=== PATIENT | male | born 2000 | race African-American/Black ===

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

== ENCOUNTER 2020-07-18 16:44 | Emergency (ER) | payer OTHER, MEDICAID ==
[~2020-07-18] VITALS: Ht 193 cm; Wt 97.5 kg
[~2020-07-18 16:44] MED LIST: FLEXERIL PO; NAPROSYN500 MG PO
[2020-07-18 16:48] VITALS: BP 153/84
[2020-07-18] MEDS ORDERED: NORCO 5-325 TA1 EAC2 PO (18:04)
== END 2020-07-18 18:11 | disposition home or self-care (01) ==
LOC: M.ERS 16:44
DX: S93.402A Sprain of unspecified ligament of left ankle, initial encounter (principal); W18.39XA Other fall on same level, initial encounter; Y93.51 Activity, roller skating (inline) and skateboarding; Y92.89 Other specified places as the place of occurrence of the external cause; Y99.8 Other external cause status